=== PATIENT | female | born 1965 | race Caucasian/White ===

== ENCOUNTER 2016-08-31 16:33 | Observation (INO) | payer OTHER ==
--- NOTE | ~2016-08-31 | HP ---
Unit #: [id number] #: [id number] Patient: GERI CANTRELL [id number] [address] [address] [id number] I MR#: [id number] NAME: GERI CANTRELL ROOM: 57 Age: 50 Sex: F Admission Date: 08/31/2016 : 1965 Attending Physician: Raffy Callaway M.D. Primary Care Physician: Leoncio Adams M.D. HISTORY AND PHYSICAL CHIEF COMPLAINT Left lower and upper extremity swelling and chest pain. HISTORY OF PRESENTING ILLNESS This is a 50-year-old morbidly obese female who was admitted to [facility] because of above complaints. According to patient she was doing well till day before yesterday. She noticed that her left upper extremity and lower extremity were swollen and she got very worried, came to ER. She also had chest pain which was going toward her left axilla and was admitted to rule out myocardial infarction and also workup for upper and lower extremity swelling. Patient does not complain of fever, chills or rigors. Patient does not complain of any erythema or tenderness or pain of the lower extremity. According to patient her swelling has much improved since last night and seems to be normal at this time. PAST MEDICAL HISTORY Patient has multiple medical history includin. Hypertension. 2. COPD. 3. Degenerative disc disease. 4. History of diabetes mellitus 2. 5. Hypothyroidism. 6. GERD. 7. Hyperlipidemia. PAST SURGICAL HISTORY 1. History of tubal ligation. 2. History of appendectomy. 3. Upper and lower lumbar spine surgery. SOCIAL HISTORY The patient is a smoker, smokes half a pack per day, has been smoking for the last 20 years. No history of alcohol abuse or drug abuse. ALLERGIES No known drug allergies. HOME MEDICATIONS Home medications are: 1. Gabapentin 400 mg t.i.d. 2. Levothyroxine 200 mcg daily. Unit #: [id number] #: [id number] Patient: GERI CANTRELL 3. Singulair 10 mg daily. 4. Claritin 10 mg daily. 5. Fenofibrate 160 mg daily p.r.n. 6. Flonase nasal spray b.i.d. 7. Percocet 10/325 mg one tablet t.i.d. p.r.n. 8. Flexeril 10 mg t.i.d. p.r.n. 9. Levemir 25 units subcu daily. 10. Levemir 65 units nightly. 11. Paxil 40 mg q.h.s. 12. Zestril 40 mg daily. FAMILY HISTORY Patient does have a family history of coronary artery disease. REVIEW OF SYMPTOMS GENERAL: No history of fever, chills or rigors. GASTROINTESTINAL: No history of abdominal pain. No history of nausea and vomiting. NEUROLOGIC: No history of dizziness or syncopal episode. She does have off and on jerking which has been going on for a long period of time. SKIN: No history of any major skin issues. PHYSICAL EXAMINATION GENERAL APPEARANCE: Patient is lying comfortably in bed, does not seem to be in any respiratory distress. VITAL SIGNS: Stable. Blood pressure is 133/80. Respiratory rate 18. Pulse is 101. Temperature 98.1. Oxygen saturation is 98%. The patient's BMI is 42. HEENT: Head is normocephalic. Eye movements are normal. NECK: Neck is supple. No carotid bruit. CHEST: Chest has fair air entry, no additional sounds. CVS: S1, S2 positive, regular rhythm. ABDOMEN: Abdomen is obese, soft, no tenderness. EXTREMITIES: Trace edema. Pulses are palpable bilaterally. EQUIPMENT MAINTENANCE ENGINEER: Awake, alert, oriented x3. No focal neurological deficit. DIAGNOSTIC STUDIES LABORATORY: Workup done so far shows troponin is less than 0.03, D-dimer is elevated to 1079. Lipid profile shows total cholesterol 246, triglycerides 781, HDL 28. Sodium 136, potassium 3.9, chloride 100, BUN 26, creatinine 1.3, WBC 8.7, hemoglobin 11.5, hematocrit 34.7 and platelet count of 240. Glucose this morning is 208. ASSESSMENT Patient is being admitted to telemetry unit with: 1. Left upper and lower extremity swelling: DVT has been ruled out. Etiology is unknown but it has improved. 2. Chest pain which is atypical: Acute CO has been ruled out. Stress test has been done. No ST/T-wave changes. No arrhythmias. Nuclear images are still pending. 3. Elevated D-dimer: Venous Doppler study of extremities was done which is negative for DVT. We are going to order CT of the chest to rule out pulmonary embolism. 4. Hypertension which is stable, slightly elevated: Will adjust the medication. 5. Chronic obstructive pulmonary disease, seems to be stable. 6. Diabetes mellitus: Continue Accu-Chek a.c. and h.s., insulin sliding scale and continue Levemir home dose. Unit #: [id number] #: [id number] Patient: GERI CANTRELL 7. Two-D echocardiogram is done. 8. Consult Cardiology, Dr. Hernandez. Dictated by Krista Horne/jeff TD: 09/01/2016 16:44 JOB #: [id number] HISTORY AND PHYSICAL Page 1 of 1 X Adelia Garcia MD HISTORY AND PHYSICAL
--- NOTE | ~2016-08-31 | EKG ---
PATIENT: GERI CANTRELL UNIT #: [id number] Ventricular Rate: 91 BPM Atrial Rate: 91 BPM P-R Interval: 154 ms QRS Duration: 90 ms Q-T Interval: 378 ms QTC Calculation(Bezet): 464 ms P [place]: 48 degrees Calculated R [place]: 17 degrees Calculated T [place]: 31 degrees Diagnosis Line: Normal sinus rhythm Diagnosis Line: Normal ECG Diagnosis Line: When compared with ECG of 31-AUG-2016 18:53, Diagnosis Line: No significant change was found Diagnosis Line: Confirmed by XIAO HINDS MD ([id number]) on 09/04/2016 Diagnosis Line: 7:36:58 AM INTERPRETING MD: GUZMAN JUNIOR
--- NOTE | ~2016-08-31 | DS ---
Unit #: [id number] #: [id number] Patient: GERI CANTRELL [id number] [address] [address] [id number] I MR#: [id number] NAME: GERI CANTRELL ROOM: 57 Age: 50 Sex: F Admission Date: 08/31/2016 : 1965 Discharge Date: 09/03/2016 Attending Physician: Raffy Callaway M.D. Primary Care Physician: Leoncio Adams M.D. DISCHARGE SUMMARY DISCHARGE DIAGNOSES 1. Chest pain, status post cardiology evaluation status post cardiac catheterization, stable to be discharged on medical management. See discharge medication reconciliation as below. Outpatient followup with Cardiology. 2. Left-sided upper and lower extremity swelling, status post negative ultrasound. 3. Elevated D-dimer, status post negative V/Q scan. 4. Chronic obstructive pulmonary disease, at the baseline, stable. 5. Diabetes. Continue home management. 6. Dyslipidemia. Continue home medications. See discharge medication reconciliation as below. DISCHARGE MEDICATIONS 1. Flonase nasal spray b.i.d. 2. Neurontin 400 mg p.o. t.i.d. 3. Paxil 40 mg q.h.s. 4. Claritin 10 mg daily. 5. Coreg 6.25 mg p.o. b.i.d. 6. Fenofibrate 160 mg daily. 7. Lipitor 80 mg q.h.s. 8. Zestril 20 mg p.o. daily. 9. Plavix 75 mg daily. 10. Flexeril 10 mg t.i.d. p.r.n. for muscle cramps. 11. Synthroid 200 mcg daily. 12. Imdur 30 mg daily. 13. Nitrostat p.r.n. for chest pain. 14. Levemir 45 units subcu before breakfast and 65 units subcu q.h.s. 15. Singulair 10 mg daily. 16. Percocet 10/325 one tablet t.i.d. p.r.n. for pain. 17. Aspirin 81 mg daily. 18. Zetia 10 mg p.o. daily. CONSULTANTS DONE THIS HOSPITAL STAY Cardiology, Dr. Hernandez. LABS AND DIAGNOSTICS AND PROCEDURES DONE THIS HOSPITAL STAY 1. V/Q scan negative. 2. Cardiac cath, per Cardiology report without any significant coronary artery disease with mild lesions of about 40% at the LAD, proximal RCA at 80%. Cardiology recommended medical management. Consider repeat PCI with stent in the mid RCA if the symptoms persist. Again outpatient followup with the cardiology. Unit #: [id number] #: [id number] Patient: GERI CANTRELL 3. Left upper and lower extremity ultrasound negative for DVT. 4. Chest x-ray normal. HISTORY OF PRESENT HOSPITAL STAY Please refer to H and P done by my colleague, Dr. Garcia, for initial presentation on this female. ACTIVE PROBLEMS AND DIAGNOSES Chest pain: As above status post cardiology evaluation. Status post cardiac cath as above. Continue medical management. Outpatient followup with cardiology. Left-sided upper and lower extremity swelling, status post negative ultrasound. Elevated D-dimer, status post negative V/Q scan. COPD, stable. Diabetes, stable. Dyslipidemia, continue as per discharge med rec. DISPOSITION Home. FOLLOWUP Follow up with: 1. PCP in two to three days. 2. Cardiology as an outpatient. Dictated by... Raffy Callaway M.D. OC/jeff TD: 09/03/2016 22:39 JOB #: [id number] DISCHARGE SUMMARY Page 1 of 1 X Raffy Callaway MD DISCHARGE SUMMARY
--- NOTE | ~2016-08-31 | EKG ---
PATIENT: GERI CANTRELL UNIT #: [id number] Ventricular Rate: 95 BPM Atrial Rate: 95 BPM P-R Interval: 148 ms QRS Duration: 80 ms Q-T Interval: 374 ms QTC Calculation(Bezet): 469 ms P [place]: 38 degrees Calculated R [place]: 18 degrees Calculated T [place]: 20 degrees Diagnosis Line: Normal sinus rhythm Diagnosis Line: Normal ECG Diagnosis Line: No previous ECGs available Diagnosis Line: Confirmed by KEVIN MCNALLY MD ([id number]) on Diagnosis Line: 09/01/2016 2:25:58 PM INTERPRETING MD: DALI JUNIOR
--- NOTE | ~2016-08-31 | NM69 ---
[facility] A Service of [facility] & [facility] RADIOLOGY TEXT RESULTS PATIENT: GERI CANTRELL LOCATION: [facility] 576-01 : [birth year] UNIT #: [id number] AGE: [address]: Raffy Callaway MD SEX: F ORDER DR: [id number] [facility] [address] [place], [place] [address] [id number] I MR#: [id number] Acc #: [id number] NAME: GERI CANTRELL : 1965 SEX: F STUDY DATE/TIME: 09/03/2016 7:53 UNIT: [facility] ROOM: [facility] STUDY DESCRIPTION: NM Pulm Vent and Perf Attending Physician: Raffy Callaway M.D. Ordering Physician: Adelia Garcia M.D. Primary Care Physician: Leoncio Adams M.D. MEDICAL IMAGING REPORT This report is preliminary unless electronic signature is present EXAM Ventilation-perfusion lung scan HISTORY Left lower extremity and left upper extremity swelling. Elevated D-dimer. TECHNIQUE The patient was administered 31.9 mCi of technetium 99m DTPA aerosol for ventilation and 5.38 mCi of technetium 99m MAA for perfusion. Multiple views were obtained over the chest. The study is correlated with a chest x-ray from 09/02/2016 FINDINGS Ventilation-perfusion is normal. There is no evidence of mismatch to suggest pulmonary embolism. IMPRESSION Normal ventilation-perfusion lung scan. Dictated by... Alexander Pickard M.D. THIS IS AN ELECTRONICALLY VERIFIED REPORT Alexander Pickard M.D. at 09/03/2016 10:45 AM DARREN/kerry TD: 09/03/2016 08:29 JOB #: [id number] MEDICAL IMAGING REPORT Page 1 of 1 COPY
--- NOTE | ~2016-08-31 | ST ---
Unit #: [id number] #: [id number] Patient: GERI CANTRELL [id number] [facility]. [address] [address] [id number] I MR#: [id number] NAME: GERI CANTRELL : 1965 SEX: F STUDY DATE/TIME: 09/01/2016 UNIT: [facility] ROOM: 576 STUDY DESCRIPTION: Lexiscan stress test Attending Physician: Rafyf Callaway M.D. Primary Care Physician: Leoncio Adams M.D. CARDIOLOGY REPORT PROCEDURE PERFORMED EKG portion of a Lexiscan Cardiolite stress test. REASON FOR EXAM Left arm pain and shortness of breath. DISCUSSION Baseline EKG reveals sinus rhythm with a ventricular rate of 95 beats per minute. Nonspecific ST-T wave changes noted. A total of 0.4 mg of Lexiscan was injected per protocol, followed by Cardiolite. There were no complaints of chest pain. There were no sustained arrhythmias noted. There were no ST or T wave changes to suggest ischemia. The maximal heart rate was 114 beats per minute with a maximal blood pressure of 140/87 mmHg. The test was stopped due to protocol completion. IMPRESSION 1. Negative EKG portion of Lexiscan Cardiolite stress test. 2. There were no complaints of chest pain. 3. There were no sustained arrhythmias noted. 4. There were no ST or T wave changes to suggest ischemia. 5. Please correlate with Cardiolite images. Dictated by... Joy Mcginnis APRN for Krista Smith/evonne TD: 09/01/2016 16:04 JOB #: [id number] Unit #: [id number] #: [id number] Patient: GERI CANTRELL CARDIOLOGY REPORT Page 1 of 1 X CARDIOLOGY REPORT
--- NOTE | ~2016-08-31 | TH ---
Unit #: [id number] #: [id number] Patient: GERI CANTRELL [id number] [address] [address] [id number] I MR#: [id number] NAME: GERI CANTRELL. : 1965 SEX: F STUDY DATE/TIME: 09/01/2016 UNIT: [facility] ROOM: 576 STUDY DESCRIPTION: Lexiscan stress test - Nucearl Attending Physician: Raffy Callaway M.D. Primary Care Physician: Leoncio Adams M.D. CARDIOLOGY REPORT PROCEDURE PERFORMED Lexiscan Cardiolite stress test - Nuclear portion. PROCEDURE Using technetium 99m-labeled Cardiolite, rest and stress SPECT images were obtained. Multiple SPECT images were obtained in various views, including horizontal and vertical long axis and short axis views of the left ventricle. Images were obtained by gated SPECT method. The patient was administered 11.22 mCi of Cardiolite at rest. The patient was administered 34 mCi of Cardiolite after Lexiscan infusion was completed. On the stress images, there is a small area of mildly decreased tracer uptake activity in the anteroapical wall. The rest images show normal perfusion. Comparing the rest and stress images, an extremely small area of possible stress-induced ischemia involving the anteroapical wall of the left ventricle cannot be ruled out. The left ventricular ejection fraction is calculated to be 60%. There is no focal wall motion abnormality seen. CONCLUSION 1. A small area of stress-induced ischemia involving the anteroapical wall of the left ventricle cannot be ruled out. obvious stress-induced ischemia noted. 2. The left ventricular ejection fraction is calculated to be 60%. 3. There is no focal wall motion abnormality seen. 4. Mildly abnormal Lexiscan Cardiolite stress test. Breast artifact cannot be ruled out. Technically limited study. Clinical correlation is requested. Dictated by... Krista Smith TD: 09/01/2016 16:27 JOB #: [id number] Unit #: [id number] #: [id number] Patient: GERI CANTRELL CARDIOLOGY REPORT Page 1 of 1 X Brittney Hernandez MD <ELECTRONICALLY SIGNED> 01/02/17 [facility] CARDIOLOGY REPORT
--- NOTE | ~2016-08-31 | BMI ---
[facility] Nutrition Therapy DATE: 09/01/16 Patient: GERI CANTRELL Physician: AYUSH Address: [address] Room/Bed: [address] [place] [address], Zip: [place] [address] Admit Date: 08/31/16 Date of : [birth year] Height: 5 3 Weight: 242 109.8 HIGH BMI NOTE: DX: 50 y/o admitted for CP ANTHROPOMETRICS: Ht: 5'3" Wt: 110 kg (242#) BMI: 42.9 DIET: NPO INTERVENTION: 1. NPO RECOMMENDATIONS: Once medically feasible, advance diet as indicated to [facility] to promote gradual weight loss towards healthy BMI. RD will f/u per protocol. Respectfully, Tanisha Taveras, Combine Inspector Peg Sanchez RD, LD Food and Nutritional Services [facility] cc: client file
--- NOTE | ~2016-08-31 | US140 ---
[facility] A Service of [facility] & [facility] RADIOLOGY TEXT RESULTS PATIENT: GERI CANTRELL [facility] 576-01 : [birth year] UNIT #: [id number] AGE: [address]: Raffy Callaway MD SEX: F ORDER DR: [id number] [facility] [address] [place], [place] [address] [id number] I MR#: [id number] Acc #: [id number] NAME: GERI CANTRELL : 1965 SEX: F STUDY DATE/TIME: 08/31/2016 17:35 UNIT: [facility] ROOM: [facility] STUDY DESCRIPTION: US UE Veins Unilat or Ltd Stdy Attending Physician: Raffy Callaway M.D. Ordering Physician: Santana Hong D.O. Primary Care Physician: Leoncio Adams M.D. MEDICAL IMAGING REPORT This report is preliminary unless electronic signature is present EXAM Left upper extremity venous Doppler 08/31/2016 INDICATIONS Left upper extremity swelling for 1 day. No known trauma. FINDINGS Mora scale, color flow, and spectral Doppler waveform analysis is performed of the left upper extremity venous system. All the venous structures demonstrate normal color flow and compressibility where applicable. No superficial or deep venous thrombosis is seen. IMPRESSION Negative left upper extremity venous Doppler. Dictated by... Alexander Castro Jr., M.D. THIS IS AN ELECTRONICALLY VERIFIED REPORT Alexander Castro Jr., M.D. at 09/01/2016 10:07 AM SHYANNE/faith TD: 09/01/2016 08:43 JOB #: [id number] MEDICAL IMAGING REPORT Page 1 of 1 COPY
--- NOTE | ~2016-08-31 | CR63 ---
[facility] A Service of [facility] & [facility] RADIOLOGY TEXT RESULTS PATIENT: GERI CANTRELL LOCATION: [facility] 576-01 : [birth year] UNIT #: [id number] AGE: [address]: Raffy Callaway MD SEX: F ORDER DR: [id number] [facility] [address] [place], [place] [address] [id number] I MR#: [id number] Acc #: [id number] NAME: GERI CANTRELL : 1965 SEX: F STUDY DATE/TIME: 09/02/2016 14:29 UNIT: [facility] ROOM: [facility] STUDY DESCRIPTION: CR Chest 2 View Attending Physician: Raffy Callaway M.D. Ordering Physician: Adelia Garcai M.D. Primary Care Physician: Leoncio Adams M.D. MEDICAL IMAGING REPORT This report is preliminary unless electronic signature is present EXAM PA and lateral chest 09/02/2016 COMPARISON EXAMINATION V/Q scan from the same day. Also compared to a chest radiograph of 08/31/2016. HISTORY Chest pain for 4 days. FINDINGS PA and lateral views of the chest are obtained. The cardiovascular configuration is normal and the lungs are clear. CONCLUSION Normal chest. Dictated by... Elier Torres M.D. THIS IS AN ELECTRONICALLY VERIFIED REPORT Elier Torres M.D. at 09/03/2016 10:35 AM HARIJT/hayes TD: 09/02/2016 19:47 JOB #: [id number] MEDICAL IMAGING REPORT Page 1 of 1 COPY
--- NOTE | ~2016-08-31 | CR72 ---
[facility] A Service of [facility] & [facility] RADIOLOGY TEXT RESULTS PATIENT: GERI CANTRELL LOCATION: [facility] 576-01 : [birth year] UNIT #: [id number] AGE: [address]: Raffy Callaway MD SEX: F ORDER DR: [id number] [facility] [address] [place], [place] [address] [id number] I MR#: [id number] Acc #: [id number] NAME: GERI CANTRELL : 1965 SEX: F STUDY DATE/TIME: 08/31/2016 16:45 UNIT: [facility] ROOM: [facility] STUDY DESCRIPTION: CR Chest Single View Portable Attending Physician: Raffy Callaway M.D. Ordering Physician: Santana Hong D.O. Primary Care Physician: Leoncio Adams M.D. MEDICAL IMAGING REPORT This report is preliminary unless electronic signature is present EXAM Portable chest, 08/31 HISTORY Chest pain. Shortness of air and cough. Left extremity swelling that started 2 days ago. History of smoking. COMPARISON 12/06/2015 FINDINGS A single AP portable view of the chest shows both lungs to be clear. The heart is normal in size. The mediastinal contour is normal. No significant bone abnormalities are seen. IMPRESSION Normal portable chest. Dictated by... Alexander Castro Jr., M.D. THIS IS AN ELECTRONICALLY VERIFIED REPORT Alexander Castro Jr., M.D. at 09/01/2016 10:07 AM SHYANNE/roxann TD: 09/01/2016 07:55 JOB #: [id number] MEDICAL IMAGING REPORT Page 1 of 1 COPY
--- NOTE | ~2016-08-31 | US85 ---
[facility] A Service of [facility] & [facility] RADIOLOGY TEXT RESULTS PATIENT: GERI CANTRELL LOCATION: [facility] 576-01 : [birth year] UNIT #: [id number] AGE: [address]: Raffy Callaway MD SEX: F ORDER DR: [id number] [facility] [address] [place], [place] [address] [id number] I MR#: [id number] Acc #: [id number] NAME: GERI CANTRELL : 1965 SEX: F STUDY DATE/TIME: 08/31/2016 17:49 UNIT: [facility] ROOM: [facility] STUDY DESCRIPTION: US LE Veins Unilat or Ltd Stdy Attending Physician: Raffy Callaway M.D. Ordering Physician: Santana Hong D.O. Primary Care Physician: Leoncio Adams M.D. MEDICAL IMAGING REPORT This report is preliminary unless electronic signature is present EXAM Left lower extremity venous Doppler 08/31/2016 INDICATION Left lower extremity swelling for 1 day. No trauma. TECHNIQUE Venous ultrasound examination of the left lower extremity was performed using grayscale, spectral Doppler and color flow Doppler imaging. FINDINGS The examination is negative. There is no evidence of left lower extremity deep venous thrombus from the groin to the lower calf. Visualized greater saphenous vein is also patent. IMPRESSION Negative examination. No evidence of left lower extremity deep venous thrombosis. Dictated by... Alexander Castro Jr., M.D. THIS IS AN ELECTRONICALLY VERIFIED REPORT Alexander Castro Jr., M.D. at 09/01/2016 10:07 AM SHYANNE/hayes TD: 09/01/2016 09:01 JOB #: [id number] MEDICAL IMAGING REPORT Page 1 of 1 COPY
--- NOTE | ~2016-08-31 | CO ---
Unit #: [id number] #: [id number] Patient: GERI CANTRELL [id number] [address] [place], [place] [address] [id number] MR#: [id number] NAME: GERI CANTRELL ROOM: 576 Age: 50 Sex: F Admission Date: 08/31/2016 : 1965 Attending Physician: Raffy Callaway M.D. Primary Care Physician: Leoncio Adams M.D. CONSULTATION REPORT REASON FOR CONSULTATION Chest pain. HISTORY OF PRESENT ILLNESS This is a 50-year-old female with past medical history of hypertension, hyperlipidemia, hypothyroidism, obesity, tobacco abuse, chronic back pain, and family history of coronary artery disease. She presented to the emergency room secondary to complaints of left upper extremity swelling and left lower extremity swelling. She states this has been going on for approximately 2 days. The patient also reported some chills at home, but denies any fever. She also denied any recent fall or injury. In the emergency room, initial vital signs were temperature 98.0, respiratory rate 16, pulse of 118, blood pressure 137/95, oxygen saturation was 98% on room air. The patient also reports some intermittent issues of pain in her left upper chest wall with radiation into the armpit. She describes as a sharp that comes and goes, it does not appear to be related to any exertional activity, it occurs at random times. In the emergency room, the patient was noted to have an elevated D-dimer of 1079. She had a left upper extremity venous Doppler, which was negative for DVT as well as a left lower extremity venous Doppler, which was negative for DVT. The patient currently has a CT of the chest with PE protocol that is pending. Initial chest x-ray was normal showed no active disease. The patient denies any current complaints of shortness of breath. EKG shows normal sinus rhythm, rate of 95 beats per minute, QTc interval 469 msec, no acute ischemic changes noted. The patient's initial cardiac enzymes have been negative. At present, she is resting in bed, she appears comfortable. Denies any current complaints other than some back pain. Still is concerned about the some swelling in her upper and lower extremity. On telemetry, cardiac rhythm is stable. She is in a normal sinus rhythm, rate of 99 beats per minute. PAST MEDICAL HISTORY 1. Diabetes mellitus. 2. Hypertension. 3. COPD. 4. Chronic back pain, recent surgery with Dr. Lorenzana in February, where she states she had plates placed in her back. 5. Hypothyroidism. 6. Anxiety. 7. Depression. 8. Tobacco abuse. Unit #: [id number] #: [id number] Patient: GERI CANTRELL PAST SURGICAL HISTORY 1. Tubal ligation. 2. History of laparotomy. 3. Appendectomy. 4. History of back surgery with plates placed per Dr. Lorenzana in 02/2016. SOCIAL HISTORY The patient is recently . She smokes about one pack every 2 to 3 days. Denies any illicit drugs or alcohol. FAMILY HISTORY Positive for coronary artery disease in her father. ALLERGIES Darvocet, penicillin, and hydrocodone. HOME MEDICATIONS Gabapentin 400 mg p.o. t.i.d., levothyroxine 200 mcg p.o. daily, Singulair 10 mg p.o. daily, Claritin 10 mg p.o. daily, fenofibrate 160 mg p.o. daily, Flonase 0.5% nasal spray b.i.d. 2 puffs each nostril, Percocet 10/325 one p.o. t.i.d., Flexeril 10 mg t.i.d. p.r.n. also p.r.n. on the Percocet, Levemir 45 units subcu before breakfast, Levemir 65 units subcu after dinner, Paxil 40 mg p.o. q.h.s., and Zestril 40 mg p.o. daily. REVIEW OF SYSTEMS Positive for chronic back pain, depression, and anxiety. Otherwise, negative except for what was stated in the HPI. PHYSICAL EXAMINATION GENERAL: This is a pleasant 50-year-old female, in no acute distress. She is currently sleeping, but easily arousable and answers questions appropriately. She does not appear to be in any acute distress. VITAL SIGNS: Temperature 98.1, respiratory rate 18 to 20 pulse 100 to 110s, blood pressure 124/57 to 137/95. BMI is 42. HEENT: Pupils are equal and round. Head is atraumatic and normocephalic. Mucous membranes are dry. NECK: Trachea is midline. No lymphadenopathy. No thyromegaly. No carotid bruits. No JVD. LUNGS: Clear to auscultation. Diminished in the bases. ABDOMEN: Obese soft, nontender, nondistended. Bowel sounds are present. EXTREMITIES: Trace edema left greater than right. Some mild upper extremity swelling on the left side. Pulses are palpable. No clubbing or cyanosis. NEUROLOGIC: She is drowsy today, was just recently woken from sleep, but follows commands and moves all extremities equally. DIAGNOSTIC STUDIES IMAGING STUDIES: Chest x-ray shows no active disease. Ultrasound of the upper left extremity was negative for DVT. Ultrasound of the left lower extremity was negative for DVT. She currently has a CTA of the chest, which is pending. LABORATORY RESULTS: Glucose 204, BUN 26, creatinine 1.3, sodium 136, potassium 3.9, chloride 100, CO2 of 30. Troponins have been less than 0.03 x2. BNP was 9. Total cholesterol 246, triglycerides 781, LDL was Unit #: [id number] #: [id number] Patient: GERI CANTRELL Mima not performed, HDL is 28. TSH is 7.80. D-dimer was 1079. Hemoglobin 11.5, hematocrit 34.7, WBCs 8.7, platelet count 240. CARDIOVASCULAR STUDIES: Shows normal sinus rhythm, rate of 95 beats per minute, QTc interval 469 msec, no acute ischemic change. IMPRESSION 1. Admitted for left upper and left lower extremity swelling. Doppler studies have been negative. 2. Elevated D-dimer. 3. Atypical chest pain. 4. Hypertension. 5. Hyperlipidemia. 6. Hypothyroid. 7. Obesity with a BMI of 42. 8. Continued tobacco abuse. PLAN 1. The patient was initially admitted secondary to left upper and left lower extremity swelling. In the emergency room, she was found to have an elevated D-dimer of 1079. She has already undergone left upper extremity and left lower extremity venous Dopplers which were both negative for DVT. She currently has a CT of the chest which is pending to rule out PE. The patient denies any complaints of shortness of breath. She has had some atypical chest pain. In lieu of her risk factors, which are hypertension, hyperlipidemia, diabetes mellitus, obesity, tobacco abuse, and family history of coronary artery disease. I do feel ischemic workup is indicated. 2. She will be kept n.p.o. for now. She will be scheduled for Lexiscan Cardiolite today. Also, check 2D echocardiogram to assess LV function as well as for any structural abnormalities of her valve. We will also add lipid profile to her lab work. 3. The patient was counseled on the importance of diet, exercise, and lifestyle modification as well as smoking cessation. Further recommendations pending the outcome of her Lexiscan Cardiolite. Dictated by... Caitlyn Lopez/shayna TD: 09/02/2016 00:51 JOB #: [id number] CONSULTATION REPORT Page 1 of 1 X Denice Shook APRN X CONSULTATION REPORT
[~2016-08-31 16:33] MED LIST: ACETAMINOPHEN325 MG PO; ALBUTEROL17 GM INH; ALPRAZOLAM ER1 MG PO; ALPRAZOLAM PO; AZITHROMYCIN250 MG PO; BENTYL10 MG PO; BENZONATATE PO; CLARITIN10 M2 PO; CLARITIN10 MG PO; DIABETA5 M1 PO; EC-NAPROSYN500 MG PO; FENOFIBRATE160 MG PO; FERROUS GLUCON324 MG PO; FLAGYL PO; FLEXERIL10 MG PO; FLONASE 0.05% N16 GM; FLONASE16 GM; GABAPENTIN400 M2 PO; HYDROCHLOROTHIA25 MG PO; KEFLEX500 M1 PO; LEVAQUIN PO; LEVAQUIN750 MG PO; LEVEMIR FL100 UNIT/1 SUBQ; LEVEMIR SUBQ; LEVO-T200 MCG PO; LEVOXYL200 MC1 PO; LEXAPRO20 MG PO; LIPITOR PO; LISINOPRIL PO; MELOXICAM15 MG PO; MEPILEX; METFORMIN PO; MUCINEX PO; NORVASC10 MG PO; NOVOLOG FL100 UNIT/1 SUBQ; ONDANSETRON ODT4 MG PO; OXYCODONE-APAP1 EACH PO; PAROXETINE HCL40 M1 PO; PAXIL PO; PAXIL40 MG PO; PERCOCET 10/31 UDTA1 PO; PHENERGAN25 M1 PO; PHENERGAN25 MG PO; PRINIVIL40 MG PO; ROXICODONE5 M1 PO; SINGULAIR PO; SYNTHROID PO; SYNTHROID0.2 MG PO; TRIGLIDE160 M1 PO; TYLENOL #3 PO; VITAMIN D250000 UNIT PO; VOLTAREN50 MG PO; XANAX1 MG PO; ZESTRIL10 M1 PO; ZESTRIL40 MG PO; ZITHROMAX PO; [UNRECOGNIZED DRUG - OTHER]
[2016-08-31 17:27] LABS: BASOPHIL# 0.1 X10e3 (0-0.3); BASOPHIL% 0.9 % (0-2.5); EOSINOPHIL# 0.5 X10e3 (0-0.7); EOSINOPHIL% 5.1 % (0.0-7.0); HEMATOCRIT 34.7 % (35.0-45.0); HEMOGLOBIN 11.4 gm/dL (12.0-16.0); LYMPHOCYTE# 2.4 X10e3 (1.0-3.5); LYMPHOCYTE% 24.3 % (17.0-45.0); MEAN CELL VOLUME 87.9 FL (83-96); MEAN CORPUSCULAR HEMOGLOBIN 28.9 PG (28-34); MEAN CORPUSCULAR HGB CONC 32.9 g/dL (30-36); MEAN PLATELET VOLUME 9.3 FL (6.5-11.5); MONOCYTE# 0.8 X10e3 (0-1.0); MONOCYTE% 7.8 % (3.0-12.0); NEUTROPHIL% 61.9 % (40-75); PLATELET COUNT 219 X10e3 (140-420); RED BLOOD COUNT 3.94 X10e (3.90-5.30); RED CELL DISTRIBUTION WIDTH 14.5 % (11.0-15.5); WHITE BLOOD COUNT 9.8 X10e3 (4.0-10.5)
[2016-08-31 17:28] LABS: DIFF IND NO
[2016-08-31 17:39] LABS: PARTIAL THROMBOPLASTIN TIME 29.7 SECONDS (23.5-31.3); PROTHROMBIN TIME (PATIENT) 10.1 SECONDS (9.6-11.5)
[2016-08-31 17:50] LABS: ALBUMIN SERUM 3.8 g/dL (3.5-5.0); ALKALINE PHOSPHATASE 67 U/L (32-92); ALT (SGPT) 35 U/L (10-40); AST (SGOT) 31 U/L (10-42); BILIRUBIN,TOTAL 0.5 mg/dL (0.2-2.0); BLOOD UREA NITROGEN 21 mg/dL (9-23); BUN/CREATININE RATIO 19.09; CALCIUM SERUM 9.2 mg/dL (8.4-10.2); CARBON DIOXIDE 27 mmol/L (22-31); CHLORIDE 104 mmol/L (100-111); CREATININE SERUM 1.1 mg/dL (0.6-1.4); GLOM FILT RATE Estimated 56.1 mL/min (>60); GLUCOSE FASTING 143 mg/dL (70-110); POTASSIUM 3.7 mmol/L (3.5-5.1); PROTEIN TOTAL SERUM 7.3 g/dL (6.0-8.3); SODIUM 136 mmol/L (135-145)
[2016-08-31 17:51] LABS: BILIRUBIN, DIRECT <0.1 mg/dL (0.0-0.2); BILIRUBIN,INDIRECT 0.4 mg/dL (0.0-0.9)
[2016-08-31 19:57] LABS: POC - CKMB 1.8 ng/mL (0.0-7.9); POC - TROPONIN <0.05 ng/mL (<=0.05)
[2016-08-31] MEDS ORDERED: LEVEMIR100 UNITS/ SUBQ (20:55)
[2016-08-31] MEDS ORDERED: LEVEMIR SUBQ (20:55)
[2016-08-31] MEDS ORDERED: PAXIL40 MG PO (20:55)
[2016-08-31] MEDS ORDERED: ZESTRIL40 MG PO (20:57)
[2016-08-31 22:49] LABS: POC - CKMB 1.6 ng/mL (0.0-7.9); POC - TROPONIN <0.05 ng/mL (<=0.05)
[2016-09-01 03:13] LABS: HEMATOCRIT 34.7 % (35.0-45.0); HEMOGLOBIN 11.5 gm/dL (12.0-16.0); MEAN CELL VOLUME 88.9 FL (83-96); MEAN CORPUSCULAR HEMOGLOBIN 29.4 PG (28-34); MEAN PLATELET VOLUME 8.9 FL (6.5-11.5); RED BLOOD COUNT 3.91 X10e (3.90-5.30); RED CELL DISTRIBUTION WIDTH 14.3 % (11.0-15.5); WHITE BLOOD COUNT 8.7 X10e3 (4.0-10.5)
[2016-09-01 03:33] LABS: CALCIUM SERUM 9.1 mg/dL (8.4-10.2); CREATININE SERUM 1.3 mg/dL (0.6-1.4); GLOM FILT RATE Estimated 46.3 mL/min (>60); POTASSIUM 3.9 mmol/L (3.5-5.1)
[2016-09-01 03:47] LABS: %MB 1.7 % (0.0-4.0); MB 2.5 ng/ml
[2016-09-01 10:22] LABS: %MB 1.7 % (0.0-4.0); MB 2.1 ng/ml
[2016-09-01 10:27] LABS: CHOLESTEROL 246 mg/dL (0-200); HDL CHOLESTEROL 28 mg/dL (35-95)
[2016-09-01 10:34] LABS: TRIGLYCERIDES 781 mg/dL (10-160)
[2016-09-02 10:24] LABS: HEMATOCRIT 32.1 % (35.0-45.0); HEMOGLOBIN 10.3 gm/dL (12.0-16.0); MEAN CELL VOLUME 89.1 FL (83-96); MEAN CORPUSCULAR HEMOGLOBIN 28.6 PG (28-34); MEAN CORPUSCULAR HGB CONC 32.1 g/dL (30-36); RED BLOOD COUNT 3.6 X10e (3.90-5.30); RED CELL DISTRIBUTION WIDTH 14.5 % (11.0-15.5); WHITE BLOOD COUNT 8.5 X10e3 (4.0-10.5)
[2016-09-02 10:44] LABS: PARTIAL THROMBOPLASTIN TIME 27.3 SECONDS (23.5-31.3); PROTHROMBIN TIME (PATIENT) 10.4 SECONDS (9.6-11.5)
[2016-09-02 10:53] LABS: BLOOD UREA NITROGEN 22 mg/dL (9-23); BUN/CREATININE RATIO 31.42; CALCIUM SERUM 8.4 mg/dL (8.4-10.2); CARBON DIOXIDE 25 mmol/L (22-31); CHLORIDE 104 mmol/L (100-111); CREATININE SERUM 0.7 mg/dL (0.6-1.4); GLOM FILT RATE Estimated ABOVE60 mL/min (>60); GLUCOSE FASTING 166 mg/dL (70-110); POTASSIUM 4.1 mmol/L (3.5-5.1); SODIUM 135 mmol/L (135-145)
[2016-09-03 09:44] LABS: BASOPHIL# 0.1 X10e3 (0-0.3); BASOPHIL% 0.7 % (0-2.5); EOSINOPHIL# 0.3 X10e3 (0-0.7); EOSINOPHIL% 4.8 % (0.0-7.0); HEMATOCRIT 29.4 % (35.0-45.0); HEMOGLOBIN 9.7 gm/dL (12.0-16.0); LYMPHOCYTE# 1.9 X10e3 (1.0-3.5); LYMPHOCYTE% 27.7 % (17.0-45.0); MEAN CELL VOLUME 88.2 FL (83-96); MEAN CORPUSCULAR HGB CONC 32.9 g/dL (30-36); MEAN PLATELET VOLUME 8.4 FL (6.5-11.5); MONOCYTE# 0.6 X10e3 (0-1.0); MONOCYTE% 8.3 % (3.0-12.0); NEUTROPHIL# 4.1 X10e3 (1.5-7.1); NEUTROPHIL% 58.5 % (40-75); PLATELET COUNT 238 X10e3 (140-420); RED BLOOD COUNT 3.33 X10e (3.90-5.30); RED CELL DISTRIBUTION WIDTH 14.1 % (11.0-15.5)
[2016-09-03 09:47] LABS: DIFF IND NO
[2016-09-03 10:12] LABS: ALBUMIN SERUM 3.3 g/dL (3.5-5.0); BILIRUBIN,TOTAL 0.5 mg/dL (0.2-2.0); BUN/CREATININE RATIO 22.85; CALCIUM SERUM 8.5 mg/dL (8.4-10.2); CREATININE SERUM 0.7 mg/dL (0.6-1.4); GLOM FILT RATE Estimated 101.7 mL/min (>60); POTASSIUM 3.9 mmol/L (3.5-5.1); PROTEIN TOTAL SERUM 5.8 g/dL (6.0-8.3)
[2016-09-03] MEDS ORDERED: COREG6.25 M1 PO (21:31)
[2016-09-03] MEDS ORDERED: LIPITOR80 MG PO (21:32)
[2016-09-03] MEDS ORDERED: CLOPIDOGREL75 MG PO (21:34)
[2016-09-03] MEDS ORDERED: IMDUR-ER30 M1 PO (21:37)
[2016-09-03] MEDS ORDERED: NITROGLYCERIN0.4 MG SL (21:38)
[2016-09-03] MEDS ORDERED: ZETIA PO (21:39)
[2016-09-03] MEDS ORDERED: PERCOCET 10/31 UDTA1 PO (21:44)
[2016-09-03] MEDS ORDERED: PAXIL40 MG PO (21:56)
== END 2016-09-03 22:45 | disposition home or self-care (01) ==
LOC: CED 16:33 → CEDOF 20:00 → C5C 21:55
PROVIDERS: Emergency Medicine; Hospitalist; Internal Medicine Cardiovascular Disease
PROC: 4A023N7 Measurement of Cardiac Sampling and Pressure, Left Heart, Percutaneous Approach (ICD-10-PCS; principal; 2016-08-31)
PROC: B211YZZ Fluoroscopy of Multiple Coronary Arteries using Other Contrast (ICD-10-PCS; 2016-08-31)
PROC: B215YZZ Fluoroscopy of Left Heart using Other Contrast (ICD-10-PCS; 2016-08-31)
DX: I25.119 Atherosclerotic heart disease of native coronary artery with unspecified angina pectoris (principal); I51.7 Cardiomegaly; I51.9 Heart disease, unspecified; M79.89 Other specified soft tissue disorders; R79.1 Abnormal coagulation profile; E11.9 Type 2 diabetes mellitus without complications; Z79.4 Long term (current) use of insulin; E66.9 Obesity, unspecified; Z68.41 Body mass index [BMI] 40.0-44.9, adult; I10 Essential (primary) hypertension; E78.5 Hyperlipidemia, unspecified; J44.9 Chronic obstructive pulmonary disease, unspecified; E03.9 Hypothyroidism, unspecified; F17.200 Nicotine dependence, unspecified, uncomplicated; K21.9 Gastro-esophageal reflux disease without esophagitis; M54.9 Dorsalgia, unspecified; Z79.899 Other long term (current) drug therapy; Z82.49 Family history of ischemic heart disease and other diseases of the circulatory system; Z98.51 Tubal ligation status; Z98.890 Other specified postprocedural states; Z88.0 Allergy status to penicillin; Z88.5 Allergy status to narcotic agent
CPT/HCPCS: 36415; 71010; 71020; 78452; 78582; 80048; 80053; 80061; 80076; 82550; 82553; 82947; 83880; 84443; 84484; 85025; 85027; 85379; 85610; 85730; 93005; 93017; 93306; 93971; 96372; 96374; 96376; 99285; A9500; A9540; A9567; C1769; C1887; C1894; G0378; J1644; J1650; J1815; J2250; J2785; J3010

== ENCOUNTER 2016-10-09 07:09 | Emergency (ER) | payer OTHER ==
--- NOTE | ~2016-10-09 | CR72 ---
[facility] A Service of [facility] & [facility] RADIOLOGY TEXT RESULTS PATIENT: GERI CANTRELL LOCATION: [facility] : [birth year] UNIT #: [id number] AGE: [address]: Js Rogel MD SEX: F ORDER DR: [id number] [facility] [address] [place], [place] [address] [id number] E MR#: [id number] Acc #: [id number] NAME: GERI CANTRELL : 1965 SEX: F STUDY DATE/TIME: 10/09/2016 6:52 UNIT: [facility] ROOM: STUDY DESCRIPTION: CR Chest Single View Portable Attending Physician: Js Rogel M.D. Ordering Physician: Js Rogel M.D. Primary Care Physician: Leoncio Adams M.D. MEDICAL IMAGING REPORT This report is preliminary unless electronic signature is present EXAM Portable chest HISTORY Left-sided chest pain, left leg swelling, dizziness x2 days. COMPARISON 09/02/2016. FINDINGS A single AP portable view of the chest shows both lungs to be clear. The heart is normal in size. The mediastinal contour is normal. No significant bone abnormalities are seen. IMPRESSION Normal portable chest. Dictated by... Candelaria Phillips M.D. THIS IS AN ELECTRONICALLY VERIFIED REPORT Candelaria Phillips M.D. at 10/12/2016 1:19 PM DORINDA/claudia TD: 10/09/2016 07:49 JOB #: [id number] MEDICAL IMAGING REPORT Page 1 of 1 COPY
--- NOTE | ~2016-10-09 | EKG ---
PATIENT: GERI CANTRELL UNIT #: [id number] Ventricular Rate: 92 BPM Atrial Rate: 92 BPM P-R Interval: 140 ms QRS Duration: 82 ms Q-T Interval: 380 ms QTC Calculation(Bezet): 469 ms P [place]: 50 degrees Calculated R [place]: 19 degrees Calculated T [place]: 36 degrees Diagnosis Line: Normal sinus rhythm Diagnosis Line: Possible Left atrial enlargement Diagnosis Line: Borderline ECG Diagnosis Line: When compared with ECG of 09-OCT-2016 06:39, Diagnosis Line: (unconfirmed) Diagnosis Line: No significant change was found Diagnosis Line: Confirmed by LAURA COOK MD ([id number]) on Diagnosis Line: 10/09/2016 11:21:15 PM INTERPRETING MD: BRUNO
[2016-10-09 07:08] LABS: BASOPHIL% 0.3 % (0-2.5); EOSINOPHIL# 0.8 X10e3 (0-0.7); EOSINOPHIL% 8.6 % (0.0-7.0); HEMATOCRIT 35.8 % (35.0-45.0); HEMOGLOBIN 11.5 gm/dL (12.0-16.0); LYMPHOCYTE# 2.9 X10e3 (1.0-3.5); LYMPHOCYTE% 33.2 % (17.0-45.0); MEAN CELL VOLUME 88.1 FL (83-96); MEAN CORPUSCULAR HEMOGLOBIN 28.3 PG (28-34); MEAN CORPUSCULAR HGB CONC 32.2 g/dL (30-36); MEAN PLATELET VOLUME 8.4 FL (6.5-11.5); MONOCYTE# 0.7 X10e3 (0-1.0); MONOCYTE% 7.5 % (3.0-12.0); NEUTROPHIL# 4.4 X10e3 (1.5-7.1); NEUTROPHIL% 50.4 % (40-75); PLATELET COUNT 283 X10e3 (140-420); RED BLOOD COUNT 4.06 X10e (3.90-5.30); RED CELL DISTRIBUTION WIDTH 14.6 % (11.0-15.5); WHITE BLOOD COUNT 8.8 X10e3 (4.0-10.5)
[~2016-10-09 07:09] MED LIST changes: +CLOPIDOGREL75 MG PO; +COREG6.25 M1 PO; +IMDUR-ER30 M1 PO; +LEVEMIR100 UNITS/ SUBQ; +LIPITOR80 MG PO; +NITROGLYCERIN0.4 MG SL; +ZETIA PO
[2016-10-09 07:10] LABS: DIFF IND NO
[2016-10-09 07:22] LABS: PARTIAL THROMBOPLASTIN TIME 25.2 SECONDS (23.5-31.3); PROTHROMBIN TIME (PATIENT) 10.2 SECONDS (9.6-11.5)
[2016-10-09 07:29] LABS: POC - CKMB 1.1 ng/mL (0.0-7.9); POC - TROPONIN <0.05 ng/mL (<=0.05)
[2016-10-09 07:42] LABS: ALBUMIN SERUM 4.1 g/dL (3.5-5.0); BILIRUBIN, DIRECT 0.1 mg/dL (0.0-0.2); BILIRUBIN,INDIRECT 0.5 mg/dL (0.0-0.9); BILIRUBIN,TOTAL 0.6 mg/dL (0.2-2.0); BUN/CREATININE RATIO 21.53; CALCIUM SERUM 9.5 mg/dL (8.4-10.2); CREATININE SERUM 1.3 mg/dL (0.6-1.4); GLOM FILT RATE Estimated 48.1 mL/min (>60); POTASSIUM 3.9 mmol/L (3.5-5.1); PROTEIN TOTAL SERUM 7.1 g/dL (6.0-8.3)
[2016-10-09 09:41] LABS: POC - CKMB 1.1 ng/mL (0.0-7.9); POC - TROPONIN <0.05 ng/mL (<=0.05)
== END 2016-10-09 10:23 | disposition home or self-care (01) ==
LOC: CED 07:09
PROVIDERS: Emergency Medicine
DX: R07.9 Chest pain, unspecified (principal); E11.9 Type 2 diabetes mellitus without complications; I10 Essential (primary) hypertension; J44.9 Chronic obstructive pulmonary disease, unspecified; F17.200 Nicotine dependence, unspecified, uncomplicated; Z79.84 Long term (current) use of oral hypoglycemic drugs; Z79.899 Other long term (current) drug therapy
CPT/HCPCS: 36415; 71010; 80048; 80076; 82553; 83690; 84484; 85025; 85610; 85730; 93005; 96360; 99284; J2405

== ENCOUNTER 2016-11-08 00:14 | Inpatient (IN) | payer OTHER ==
--- NOTE | ~2016-11-08 | EKG ---
PATIENT: GERI CANTRELL UNIT #: [id number] Ventricular Rate: 104 BPM Atrial Rate: 104 BPM P-R Interval: 156 ms QRS Duration: 78 ms Q-T Interval: 342 ms QTC Calculation(Bezet): 449 ms P [place]: 31 degrees Calculated R [place]: -4 degrees Calculated T [place]: 12 degrees Diagnosis Line: Sinus tachycardia Diagnosis Line: Minimal voltage criteria for LVH, may be normal Diagnosis Line: variant Diagnosis Line: Nonspecific ST and T wave abnormality Diagnosis Line: Abnormal ECG Diagnosis Line: When compared with ECG of 15-AUG-2016 21:19, Diagnosis Line: Minimal criteria for Inferior infarct are no Diagnosis Line: longer Present Diagnosis Line: Nonspecific T wave abnormality now evident in Diagnosis Line: Anterior leads Diagnosis Line: Nonspecific T wave abnormality no longer evident Diagnosis Line: in Lateral leads Diagnosis Line: Confirmed by ABIEL CHAVEZ MD ([id number]) on Diagnosis Line: 11/10/2016 3:15:55 PM INTERPRETING MD: SCOTT JUNIOR
--- NOTE | ~2016-11-08 | CR72 ---
[facility] A Service of [facility] & [facility] RADIOLOGY TEXT RESULTS PATIENT: GERI CANTRELL LOCATION: [facility] [id number] : [birth year] UNIT #: [id number] AGE: [address]: Nicolás Foote MD SEX: F ORDER DR: [id number] [facility] [address] [place], [place] [address] [id number] I MR#: [id number] Acc #: [id number] NAME: GERI CANTRELL : 1965 SEX: F STUDY DATE/TIME: 11/08/2016 0:59 UNIT: [facility] ROOM: 68622 STUDY DESCRIPTION: CR Chest Single View Portable Attending Physician: Nicolás Foote M.D. Ordering Physician: Alexander Escalante M.D. Primary Care Physician: Leoncio Adams M.D. MEDICAL IMAGING REPORT This report is preliminary unless electronic signature is present EXAM Portable chest INDICATIONS Shortness of air today. PROCEDURE Frontal view chest. COMPARISON 10/09/2016 FINDINGS Heart size stable. No dense consolidation, effusion or pneumothorax. IMPRESSION No active process Dictated by... Son Moore M.D. THIS IS AN ELECTRONICALLY VERIFIED REPORT Son Moore M.D. at 11/08/2016 10:04 PM NOAM/charo TD: 11/08/2016 02:10 JOB #: [id number] MEDICAL IMAGING REPORT Page 1 of 1 COPY
--- NOTE | ~2016-11-08 | HP ---
Unit #: [id number] #: [id number] Patient: GERI CANTRELL [id number] [address] [place], [place] [address] [id number] I MR#: [id number] NAME: GERI CANTRELL ROOM: 13998 Age: 51 Sex: F Admission Date: 11/08/2016 : 1965 Attending Physician: Nicolás Foote M.D. Primary Care Physician: Leoncio Adams M.D. HISTORY AND PHYSICAL CHIEF COMPLAINT Left leg pain and immobility. HISTORY OF PRESENT ILLNESS The patient reports a two-day history of her left leg giving out on her and weakness. She had a lumbar spine surgery performed by Dr. Lorenzana at [facility], and since that time she has been on Percocet. She cannot recall the last time she has seen Dr. Lorenzana. She is otherwise healthy with the exception that she is on Plavix. A 14-point review of systems is otherwise negative. MEDICATIONS 1. Paroxetine. 2. Singulair. 3. Lyrica. 4. Percocet every 4 hours for pain. PHYSICAL EXAMINATION GENERAL: She is awake and alert. EXTREMITIES: She has a contusion on her left knee. She can barely move her knee, I would say 3 out of 5 flexion and extension. She has 4 out of 5 dorsiflexion and plantar flexion of her ankle. Sensation is intact. She has well-healed surgical incisions consistent with minimally invasive lumbar fusion on her back. DIAGNOSTIC STUDIES IMAGING: MRI reveals multifactorial ongoing stenosis from L4 to S1 where there appears to be pedicle screw fixation. There is still surrounding disc material. CLINICAL IMPRESSION Lumbar radiculopathy with weakness of the left leg that appears more acute. RECOMMENDATIONS Decadron and adequate pain management. If she can be taken off her Plavix temporarily, then in a week she could probably have an epidural steroid injection. It may be prudent to have her transferred to [facility] where Dr. Lorenzana would have the opportunity to evaluate her since he recently operated on her and knows her history from a spine standpoint better than I would. Thank you for the consult. Dictated by Unit #: [id number] #: [id number] Patient: GERI CANTRELL M.D. JTM/giovanna TD: 11/08/2016 15:45 JOB #: [id number] HISTORY AND PHYSICAL Page 1 of 1 X Elier Villar MD X HISTORY AND PHYSICAL
--- NOTE | ~2016-11-08 | CO ---
Unit #: [id number] #: [id number] Patient: GERI CANTRELL [id number] [facility]. [address] [place], [place] [address] [id number] I MR#: [id number] NAME: GERI CANTRELL ROOM: 33608 Age: 51 Sex: F Admission Date: 11/08/2016 : 1965 Attending Physician: Nicolás Foote M.D. Primary Care Physician: Leoncio Adams M.D. CONSULTATION REPORT REASON FOR CONSULTATION Chest pain. HISTORY OF PRESENT ILLNESS This is a 51-year-old white female, who is known to our group, who has a history of coronary artery disease, where she had a cardiac catheterization after abnormal stress test in 08/2016, when she was found to have nonobstructive disease to the LAD and circumflex arteries. The right coronary artery had 80% stenosis at the junction of the proximal third and distal two-third. She was continued on medical management. She has hypertension, diabetes, obesity, and nicotine abuse as risk factors for ischemic heart disease. The patient is admitted to the hospital with a complaint of left leg numbness and inability to walk. She states yesterday after waking up, she was unable to walk. There was no improvement at the end of the day. She complained of back pain as well. MRI of her back revealed moderately severe central canal narrowing of L4-L5 and L5-S1. She also complained of chest pain that has been off and on for a while. Yesterday, she had left axillary and left anterior chest pain associated with palpitations, but no shortness of breath, lasting for 2 minutes. Two days ago, she took sublingual nitroglycerin that did not help. She states she has been "sweaty" for the last two days. No fever or chills. She does complain of nausea for the past 2 days. She felt her heart racing off and on. Her troponin has been negative thus far. Electrocardiogram has no acute ischemic changes. PAST MEDICAL HISTORY 1. 2D echocardiogram on 09/01/2016 showed an ejection fraction of 60% with mild concentric left ventricular hypertrophy. Trace mitral regurgitation and trivial tricuspid regurgitation (technically limited study). 2. Lexiscan Cardiolite stress test on 09/01/2016 shows a small area of stress-induced ischemia involving the anterior apical wall of the left ventricle. Ejection fraction of 60%. 3. Cardiac catheterization on 09/02/2016 showed an ejection fraction equal to 50%. Left main normal. Mid LAD showed two areas of 40% stenosis. Diagonal branches and septal perforators are normal. Circumflex artery, small to medium caliber, nondominant vessel with mid vessel stenosis of 30%. Posterior marginal and first marginal branches are normal. Right coronary artery, large caliber dominant vessel with proximal third of the artery normal. At the junction of the proximal third and distal two-third, there is a concentric 80% stenosis, beyond which the vessel was normal. PDA and PLV branches are normal. Ejection fraction of 50%. 4. Hypertension. Unit #: [id number] #: [id number] Patient: GERI CANTRELL 5. Hyperlipidemia. 6. Insulin-dependent diabetes mellitus, type 2. 7. Hypothyroidism. 8. COPD. 9. Chronic back pain. 10. Active smoker. 11. Obesity. PAST SURGICAL HISTORY 1. Appendectomy. 2. Tubal ligation. 3. Back surgery in the past. 4. History of laparotomy. SOCIAL HISTORY The patient is a . She states she quit smoking 2 months ago, but previously smoked a pack a day every three days. FAMILY HISTORY Father had a myocardial infarction and history of bypass surgery, but at age 87. Has a brother with heart disease. ALLERGIES No known drug allergies. HOME MEDICATIONS 1. Atorvastatin 80 mg nightly. 2. Carvedilol 6.25 mg b.i.d. 3. Plavix 75 mg daily. 4. Cyclobenzaprine 10 mg t.i.d. p.r.n. 5. Gabapentin 400 mg t.i.d. 6. Hydrochlorothiazide 25 mg daily. 7. Imdur 30 mg daily. 8. Levemir 55 units subcu b.i.d. 9. Levothyroxine 200 mcg daily. 10. Loratadine 10 mg daily. 11. Lyrica 75 mg b.i.d. 12. Singulair 10 mg daily. 13. Nitroglycerin 0.4 mg sublingual p.r.n. 14. Zofran 4 mg q.8 hours p.r.n. 15. Oxycodone/acetaminophen 10/325 one tablet q.i.d. p.r.n. 16. Paxil 40 mg daily. 17. Vitamin D2 50,000 units twice a week. REVIEW OF SYSTEMS CONSTITUTIONAL: No complaint of fever or chills. Has no weight gain or weight loss. HEENT: No headache, hearing or vision changes, or difficulty with swallowing. Negative for dizziness. CARDIOVASCULAR: Has chest pain as described in the HPI. Reports palpitations. No paroxysmal nocturnal dyspnea or orthopnea. No syncope or near syncope. RESPIRATORY: Negative for dyspnea, cough, or hemoptysis. GASTROINTESTINAL: No abdominal pain, but reports nausea for 2 days. No vomiting. Denies hematemesis, hematochezia, or melena. EXTREMITIES: No leg edema. Has left leg numbness and pain. Reports back pain. Unit #: [id number] #: [id number] Patient: GERI CANTRELL PHYSICAL EXAMINATION VITAL SIGNS: Blood pressure 143/72, heart rate 99, temperature 98.4. BMI of 41. GENERAL: This is a 51-year-old obese, white female, who is in no acute distress. NEUROLOGIC: She is awake, alert, and oriented. There are no focal weaknesses. NECK: Trachea is midline. No thyromegaly or lymphadenopathy. No jugular venous distention. HEART: S1 and S2. Heart sounds are normal. No murmurs, rubs, or clicks. Regular rate and rhythm. LUNGS: Clear without rales, rhonchi, or wheeze. ABDOMEN: Soft and nontender with bowel sounds present. EXTREMITIES: Without leg edema. SKIN: Warm and dry. DIAGNOSIS STUDIES LABORATORY RESULTS: Glucose is 264, BUN 22, creatinine 1.2, sodium 130, potassium 3.3, magnesium 1.7. CK total is 1228, MB 8.5, MB index 0.7. Troponin less than 0.03 and less than 0.05. BNP 21. White count 16.3, hemoglobin 12.0, hematocrit 36.4, and platelet count 335. IMAGING STUDIES: Chest x-ray shows no active disease. MRI of the lumbar spine shows a fusion at L4 through S1. There is moderately severe central canal narrowing at L4-L5 and L5-S1. CARDIOVASCULAR STUDIES: Electrocardiogram, normal sinus rhythm with a rate of 98 beats per minute, otherwise normal. IMPRESSION 1. Lumbar radiculopathy. 2. Unstable angina. 3. Coronary artery disease with 80% stenosis of the right coronary artery per cardiac catheterization in 08/2016. 4. Hypertension. 5. Hyperlipidemia. 6. Diabetes mellitus, type 2. 7. Hypothyroidism. 8. Preserved left ventricular systolic function with ejection fraction of 60%. PLAN 1. Cardiology was consulted for evaluation of chest pain. The chest pain is most likely ischemic in origin resulting from the 80% stenosis to the right coronary artery. 2. Spine consult is to be done. After their evaluation, we will schedule the patient for PCI of the right coronary artery. This can be done electively unless cardiac enzymes become abnormal. 3. Aspirin and Plavix can be discontinued for spinal procedures and restart when appropriate. 4. Encourage the patient to stop smoking. 5. Repeat troponin and electrocardiogram. 6. SCD for DVT prophylaxis. 7. We will follow the patient with you. Thank you for allowing us to assist in this patient's care. Unit #: [id number] #: [id number] Patient: GERI CANTRELL Dictated by... Caitlyn Valadez/shayna TD: 11/09/2016 02:16 JOB #: [id number] CONSULTATION REPORT Page 1 of 1 X Florentin Higgins APRN X CONSULTATION REPORT
--- NOTE | ~2016-11-08 | EKG ---
PATIENT: GERI CANTRELL UNIT #: [id number] Ventricular Rate: 98 BPM Atrial Rate: 98 BPM P-R Interval: 146 ms QRS Duration: 84 ms Q-T Interval: 356 ms QTC Calculation(Bezet): 454 ms P [place]: 59 degrees Calculated R [place]: 48 degrees Calculated T [place]: 18 degrees Diagnosis Line: Normal sinus rhythm Diagnosis Line: Normal ECG Diagnosis Line: When compared with ECG of 09-OCT-2016 06:40, Diagnosis Line: No significant change was found Diagnosis Line: Confirmed by ABIEL CHAVEZ MD ([id number]) on Diagnosis Line: 11/10/2016 3:16:10 PM INTERPRETING MD: SCOTT JUNIOR
--- NOTE | ~2016-11-08 | HP ---
Unit #: [id number] #: [id number] Patient: GERI CANTRELL [id number] [address] [place], [place] [address] [id number] MR#: [id number] NAME: GERI CANTRELL ROOM: 48894 Age: 51 Sex: F Admission Date: 11/08/2016 : 1965 Attending Physician: Nicolás Foote M.D. Primary Care Physician: Leoncio Adams M.D. HISTORY AND PHYSICAL HISTORY OF PRESENT ILLNESS 51-year-old white female with history of hypertension, hyperlipidemia, hypothyroidism, chronic low back pain, COPD, coronary artery disease, presents to the emergency room with sudden onset of left lower extremity weakness, unable to bear weight, collapsed to the floor multiple times, has an injury to her knee, which just looks like a mild abrasion and bruising. Loss of sensation as well. He has had chest pain off and on for the past few days, as well as some palpitations. Apparently she was here recently and had a cardiac cath in August of this year showing an EF of 50%, 40% LAD, 30% mid circ lesion, RCA had junctional lesion of 80%, treated with medical therapy at that time. In the ER she was evaluated and had a white count of 16.3, GFR of 52, sodium 130, potassium 3.3, white count of 16.3, cardiac enzymes were normal. Total CPK was 1228. MRI shows a previous fusion at L4 through S1 with moderate to severe central stenosis in that same area, as well as narrowing of the left L5-S1 foramen and the patient is admitted. ALLERGIES She has no known medical allergies. MEDICATIONS PRIOR TO ADMISSION Lipitor 80 mg q.h.s.; Coreg 6.25 mg p.o. b.i.d.; Plavix 75 mg p.o. daily; Flexeril 10 mg t.i.d.; gabapentin 400 mg p.o. t.i.d.; hydrochlorothiazide 25 mg p.o. daily; Imdur ER 30 mg p.o. daily; Levemir 55 units subcu b.i.d.; Synthroid 200 mcg p.o. daily; Claritin 10 mg p.o. daily; Lyrica 75 mg p.o. b.i.d.; Singulair 10 mg p.o. daily; Nitrostat 0.4 mg sublingual p.r.n.; Zofran 4 mg p.o. q.8 hours p.r.n.; Percocet 10/325 1 p.o. q.i.d. p.r.n.; Paxil 40 mg daily; vitamin D 50,000 units p.o. twice weekly. PAST SURGICAL HISTORY Patient has had a prior tubal ligation, appendectomy, lumbar surgery as mentioned above. PAST MEDICAL HISTORY (1) prolapse, hypothyroidism, COPD, panic disorder, chronic low back pain, coronary artery disease, type 2 diabetes mellitus, hyperlipidemia, hypothyroidism, tobacco use in the past. SOCIAL HISTORY Disabled, , four children. Prior smoker. No alcohol or street drug use. FAMILY HISTORY Noncontributory. Unit #: [id number] #: [id number] Patient: GERI CANTRELL PHYSICAL EXAMINATION GENERAL: She is awake, alert, and oriented x3 in no acute distress. VITAL SIGNS: Afebrile, pulse 101, respirations 16, blood pressure 127/65, O2 sats 92% on room air. HEENT: Unremarkable. NECK: Supple without JVD, bruits, adenopathy or thyromegaly. CHEST: Clear. to auscultation. HEART: Regular rate and rhythm without any murmurs, rubs or gallops. ABDOMEN: Soft, nondistended, nontender with positive bowel sounds and no hepatosplenomegaly. EXTREMITIES: No clubbing, cyanosis or edema. and RECTAL: Deferred. NEUROLOGIC: She has complete loss of sensation in the right lower extremity, all the way down to the foot, starting into the thigh. She is able to wiggle her toes and move her ankle but not against any kind of resistance whatsoever and is unable to flex at the hip whatsoever. She attempted to be ambulated in the ER and felt to the floor. DIAGNOSTIC STUDIES LAB VALUES: Again her CMP is normal except for a sodium of 130, potassium 3.3, blood sugar of 264, GFR of 52.7, and AST of 46. White count 16.3, with a left shift, hemoglobin and platelets are normal. BNP was 21. Cardiac enzymes normal x3 sets. Total CPK 1228. IMAGING STUDIES: Chest x-ray - no active disease. MRI: MRI as mentioned above. CARDIOLOGY STUDIES: EKG shows a normal sinus rhythm and appears otherwise normal except for a nonspecific ST malformation in the antral septal leads. IMPRESSION 1. Left lower extremity radiculopathy. 2. Chronic low back pain, status post fusion of L4 through S1. 3. Rhabdomyolysis. 4. Unstable angina. 5. Hyponatremia. 6. Hypokalemia. 7. Type 2 diabetes mellitus. 8. Hyperlipidemia. 9. Hypothyroidism. 10. Leukocytosis. 11. COPD. 12. Renal insufficiency. PLAN 1. Hold statin. 2. Hold hydrochlorothiazide. 3. Replace potassium and check magnesium. 4. Hydrate with sodium bicarb to alkalize the urine. Check a urinalysis for infection and microscopic hematuria. 5. Neurosurgery and cardiology have been consulted. 6. Will repeat her labs in the morning. 7. Further evaluation pending results of the above. Dictated by Unit #: [id number] #: [id number] Patient: GERI CANTRELL M.D. WRK/jacob TD: 11/08/2016 14:40 JOB #: [id number] HISTORY AND PHYSICAL Page 1 of 1 X Nicolás Foote MD HISTORY AND PHYSICAL
--- NOTE | ~2016-11-08 | MR113 ---
[facility] A Service of [facility] RADIOLOGY TEXT RESULTS PATIENT: GERI CANTRELL LOCATION: [facility] [id number] : [birth year] UNIT #: [id number] AGE: [address]: Nicolás Foote MD SEX: F ORDER DR: [id number] [facility] [address]. [place], [place] [address] [id number] MR#: [id number] Acc #: [id number] NAME: GERI CANTRELL : 1965 SEX: F STUDY DATE/TIME: 11/08/2016 2:53 UNIT: MARY ROOM: STUDY DESCRIPTION: MR Lumbar Wo Contrast Attending Physician: Alexander Escalante M.D. Ordering Physician: Alexander Escalante M.D. Primary Care Physician: Leoncio Adams M.D. MRI CENTER REPORT This report is preliminary unless electronic signature is present. EXAM MRI lumbar spine without contrast INDICATIONS Acute onset left leg numbness and weakness beginning on 11/07/2016 PROCEDURE Sagittal and axial T1 T2-weighted imaging of the lumbar spine without contrast. COMPARISON 07/16/2015 FINDINGS Lumbar bodies have normal height and alignment. Patient has undergone interval left L4-S1 posterior fusion. No abnormal paravertebral mass. L1-L2: No significant central canal neural foraminal narrowing. L2-L3: Moderate bilateral facet arthrosis. Mild central canal narrowing. No significant neural foraminal narrowing. L3-L4: Facet arthrosis. Moderate central canal narrowing. Mild neural foraminal narrowing. L4-L5: Posterior fusion. Hardware results in artifact. Facet change. Moderate to moderately severe central canal narrowing. Neural foramen are difficult to evaluate. L5-S1: Posterior disc osteophyte. Posterior fusion. Moderate moderately severe central canal narrowing greater in the central and right paracentral region. No neural foraminal narrowing. Apparent significant neural foraminal narrowing on the left. [facility] A Service of [facility] RADIOLOGY TEXT RESULTS PATIENT: GERI CANTRELL LOCATION: [facility] [id number] : [birth year] UNIT #: [id number] AGE: [address]: Nicolás Foote MD SEX: F ORDER DR: IMPRESSION Interval posterior fusion at L4-S1 resulting in artifact which makes evaluation of these levels difficult. There is moderately severe central canal narrowing at L4-L5 and L5-S1. The neural foramen are difficult to evaluate but there does appear to be significant neural foraminal narrowing on the left at L5-S1. Dictated by... Son Moore M.D. THIS IS AN ELECTRONICALLY VERIFIED REPORT Son Moore M.D. at 11/08/2016 10:05 PM NOAM/charo TD: 11/08/2016 04:26 JOB #: [id number] MRI CENTER REPORT Page 1 of 1 COPY
[2016-11-08 01:17] LABS: ALBUMIN SERUM 3.9 g/dL (3.5-5.0); BILIRUBIN, DIRECT 0.1 mg/dL (0.0-0.2); BILIRUBIN,INDIRECT 0.3 mg/dL (0.0-0.9); BILIRUBIN,TOTAL 0.4 mg/dL (0.2-2.0); BUN/CREATININE RATIO 18.33; CALCIUM SERUM 8.8 mg/dL (8.4-10.2); CREATININE SERUM 1.2 mg/dL (0.6-1.4); GLOM FILT RATE Estimated 52.7 mL/min (>60); POTASSIUM 3.3 mmol/L (3.5-5.1)
[2016-11-08 01:45] LABS: BASOPHIL# 0.1 X10e3 (0-0.3); BASOPHIL% 0.7 % (0-2.5); EOSINOPHIL# 0.7 X10e3 (0-0.7); EOSINOPHIL% 4.1 % (0.0-7.0); HEMATOCRIT 36.4 % (35.0-45.0); LYMPHOCYTE% 18.3 % (17.0-45.0); MEAN CELL VOLUME 86.5 FL (83-96); MEAN CORPUSCULAR HEMOGLOBIN 28.6 PG (28-34); MEAN CORPUSCULAR HGB CONC 33.1 g/dL (30-36); MEAN PLATELET VOLUME 8.2 FL (6.5-11.5); MONOCYTE# 1.2 X10e3 (0-1.0); MONOCYTE% 7.4 % (3.0-12.0); NEUTROPHIL# 11.3 X10e3 (1.5-7.1); NEUTROPHIL% 69.5 % (40-75); PLATELET COUNT 335 X10e3 (140-420); RED BLOOD COUNT 4.21 X10e (3.90-5.30); RED CELL DISTRIBUTION WIDTH 15.2 % (11.0-15.5); WHITE BLOOD COUNT 16.3 X10e3 (4.0-10.5)
[2016-11-08 01:49] LABS: DIFF IND YES
[2016-11-08 02:05] LABS: PLATELET ESTIMATE NORMAL (NORMAL)
[2016-11-08 04:56] LABS: POC - CKMB 10.6 ng/mL (0.0-7.9); POC - TROPONIN <0.05 ng/mL (<=0.05)
[2016-11-08 05:02] LABS: POC - CKMB 5.7 ng/mL (0.0-7.9); POC - TROPONIN <0.05 ng/mL (<=0.05)
[2016-11-08] MEDS ORDERED: ATORVASTATIN CA80 MG PO (06:00)
[2016-11-08] MEDS ORDERED: CLOPIDOGREL75 MG PO (06:01)
[2016-11-08] MEDS ORDERED: GABAPENTIN400 MG PO (06:01)
[2016-11-08] MEDS ORDERED: HYDROCHLOROTHIA25 MG PO (06:01)
[2016-11-08] MEDS ORDERED: FLEXERIL PO (06:01)
[2016-11-08] MEDS ORDERED: COREG6.25 MG PO (06:01)
[2016-11-08] MEDS ORDERED: IMDUR-ER30 MG PO (06:02)
[2016-11-08] MEDS ORDERED: LEVEMIR FL100 UNIT/1 SUBQ (06:03)
[2016-11-08] MEDS ORDERED: SYNTHROID PO (06:04)
[2016-11-08] MEDS ORDERED: CLARITIN10 M3 PO (06:04)
[2016-11-08] MEDS ORDERED: MONTELUKAST SOD10 MG PO (06:05)
[2016-11-08] MEDS ORDERED: LYRICA75 MG PO (06:05)
[2016-11-08] MEDS ORDERED: NITROGLYGERIN0.4 MG SL (06:06)
[2016-11-08] MEDS ORDERED: ONDANSETRON HCL4 M1 PO (06:07)
[2016-11-08] MEDS ORDERED: OXYCODONE-APAP1 EAC5 PO (06:07)
[2016-11-08] MEDS ORDERED: PAXIL40 MG PO (06:08)
[2016-11-08] MEDS ORDERED: VITAMIN D250000 UNIT PO (06:08)
[2016-11-08 12:28] LABS: %MB 0.7 % (0.0-4.0); MB 8.5 ng/ml
[2016-11-08 17:28] LABS: URINE APPEARANCE CLEAR; URINE BILIRUBIN NEG (NEG); URINE BLOOD TRACE (NEG); URINE COLOR YELLOW; URINE GLUCOSE >1000 MG/DL (NEG); URINE KETONE TRACE (NEG); URINE LEUKOCYTE ESTERASE NEG (NEG); URINE NITRATE NEG (NEG); URINE PH 5.5 (5-8); URINE PROTEIN 1+ (NEG); URINE SPECIFIC GRAVITY 1.035 (1.003-1.035); URINE UROBILINOGEN 0.2 MG/DL (NEG)
[2016-11-08 17:30] LABS: CULTURE INDICATED? YES; URBCS1 AUWI 0-2 /[HPF] (0-2); URINE BACTERIA AUWI 1+ (NEGATIVE); URINE SQUAMOUS EPITHELIAL CELL OCC /[HPF]
[2016-11-08 18:32] LABS: %MB 0.5 % (0.0-4.0); MB 5.9 ng/ml
== END 2016-11-08 17:58 | disposition left against medical advice (07) | DRG 552 ==
LOC: CED 00:14 → CEDOF 04:35 → CED 05:09 → CEDOF 05:09
PROVIDERS: Emergency Medicine; Internal Medicine
DX: M54.16 Radiculopathy, lumbar region (principal); M62.82 Rhabdomyolysis; I25.110 Atherosclerotic heart disease of native coronary artery with unstable angina pectoris; Z68.41 Body mass index [BMI] 40.0-44.9, adult; E87.1 Hypo-osmolality and hyponatremia; Z87.891 Personal history of nicotine dependence; E66.9 Obesity, unspecified; J44.9 Chronic obstructive pulmonary disease, unspecified; E03.9 Hypothyroidism, unspecified; G89.29 Other chronic pain; M54.5 Low back pain; E11.9 Type 2 diabetes mellitus without complications; E78.5 Hyperlipidemia, unspecified; E87.6 Hypokalemia; D72.829 Elevated white blood cell count, unspecified; N28.9 Disorder of kidney and ureter, unspecified; Z82.49 Family history of ischemic heart disease and other diseases of the circulatory system
CPT/HCPCS: 36415; 71010; 72148; 80048; 80076; 81003; 82550; 82553; 82947; 83735; 83880; 84484; 85025; 87086; 93005; 99285; J1650; J1815; J3475